=== PATIENT | male | born 1960 | race Caucasian/White ===

== ENCOUNTER 2017-09-17 19:04 | Emergency (ER) | payer BC ==
[2017-09-17] MEDS ORDERED: DUONEB 0.5-3 MG/3 ml Neb IH ONE ×2 (19:10→19:52)
[2017-09-17] MEDS ORDERED: PULMICORT 0.5 MG/2 ML RESPULES IH STA (19:10)
[2017-09-17] MEDS ORDERED: ROCEPHIN 1 Gm-D5w 50 ml Bag** 1 G/50 ML IVPB IV STA (19:11)
[2017-09-17] MEDS ORDERED: solu-MEDROL 125 MG IV ONE (19:11)
[2017-09-17] MEDS ORDERED: Sodium Chloride 0.9% 1000 ML 1,000 ML IV STA (19:11)
--- NOTE | 2017-09-17 19:18 | ERPHSYRPT ---
- History of Present Illness Time Seen by Provider: 09/17/17 19:15 Source: patient, EMS Exam Limitations: no limitations Patient Subjective Stated Complaint: SHPRTNESS OF BREATH, COPNTINUOUS COUGH, Triage Nursing Assessment: PT ALERT AND ORIENTEDX3, CONMTINOUS COUGH, GREEN SPUTUM, DIAPHORETIC, PULSES EQUAL BIALTERAL RADIUS, GAIT IS STEADY, ABLE TO AMBUALTE, SHORTNESS OF BREATH Physician History: 56-year-old male came to the emergency room with worsening shortness of breath and cough for 2 weeks duration. Patient was seen in his primary care physician office and was given Solu-Cortef and Rocephin intramuscular and was started on oral antibiotic, but he shortness of breath got worse that he could not breathe at work and so he came to the emergency room. Timing/Duration: week(s) Possible Cause: occasional episodes Associated Symptoms: productive cough International travel in last 2 weeks: No Allergies/Adverse Reactions: bupropion HCl [From Wellbutrin] Allergy (Mild, Verified 08/14/16 18:25) Home Medications: Albuterol Sulfate [Proair Hfa] 8.5 gm IH DAILY PRN PRN 08/14/16 [History] Esomeprazole Magnesium [Nexium] 40 mg PO DAILY 08/14/16 [History] Lisinopril 5 mg [Zestril 5 MG] 2.5 mg PO DAILY 08/14/16 [History] Simvastatin 5 mg PO UD 08/14/16 [History] Hx Tetanus, Diphtheria Vaccination/Date Given: Yes Hx Influenza Vaccination/Date Given: No Hx Pneumococcal Vaccination/Date Given: No Immunizations Up to Date: Yes - Review of Systems Constitutional: No Fever, No Chills Eyes: No Symptoms Ears, Nose, & Throat: No Symptoms Respiratory: Cough, Dyspnea, Wheezing Cardiac: No Chest Pain, No Edema, No Syncope Abdominal/Gastrointestinal: No Abdominal Pain, No Nausea, No Vomiting, No Diarrhea Genitourinary Symptoms: No Dysuria Musculoskeletal: No Back Pain, No Neck Pain Skin: No Rash Neurological: No Dizziness, No Focal Weakness, No Sensory Changes Psychological: No Symptoms Endocrine: No Symptoms All Other Systems: Reviewed and Negative - Past Medical History Pertinent Past Medical History: Yes Neurological History: No Pertinent History ENT History: No Pertinent History Cardiac History: High Cholesterol, Hypertension Respiratory History: Bronchitis Endocrine Medical History: No Pertinent History Musculoskeletal History: No Pertinent History GI Medical History: No Pertinent History, Other History: No Pertinent History Psycho-Social History: Anxiety, Depression Male Reproductive Disorders: No Pertinent History Other Medical History: liver problems - Past Surgical History Past Surgical History: Yes Neuro Surgical History: No Pertinent History Cardiac: Cardiac Catheterization Respiratory: No Pertinent History Gastrointestinal: No Pertinent History Genitourinary: No Pertinent History Musculoskeletal: No Pertinent History, Orthopedic Surgery Male Surgical History: No Pertinent History Other Surgical History: TENDON IN HAND. CYST REMOVAL - Social History Smoking Status: Former smoker How long have you smoked: 2 YRS. Exposure to second hand smoke: No Drug Use: none Patient Lives Alone: No - Nursing Vital Signs Nursing Vital Signs: Initial Vital Signs Temperature 97.8 F 09/17/17 19:04 Pulse Rate 120 H 09/17/17 19:04 Respiratory Rate 24 09/17/17 19:04 Blood Pressure 146/103 09/17/17 19:04 O2 Sat by Pulse Oximetry 96 09/17/17 19:04 Pain Scale Pain Intensity 5 - Physical Exam General Appearance: no apparent distress, alert Eye Exam: PERRL/EOMI Neck Exam: normal inspection, supple Respiratory Exam: respiratory distress, rhonchi, wheezing Cardiovascular/Chest Exam: normal heart sounds, regular rate/rhythm Abdominal/Gastrointestinal Exam: soft, No tenderness, No distention, No mass Extremity Exam: non-tender, normal range of motion, normal inspection, no calf tenderness, no pedal edema Neurologic Exam: alert, oriented x 3, cooperative, 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, sensation nml, No motor deficits Skin Exam: normal color, warm, No dry SpO2 Interpretation: normal SpO2: 96 Oxygen Delivery: Nasal Cannula - Course Nursing assessment & vital signs reviewed: Yes - Radiology Exams Chest X-ray Interpretation: Reviewed by me Ordered Tests: Active Orders 24 hr Category Date Time Status Oxygen-ED Only NASAL CANNULA 2 lpm Care 09/17/17 19:11 Active CHEST 2 VIEWS (PA AND LAT) Stat Exams 09/17/17 19:12 Taken CBC W DIFF Stat Lab 09/17/17 19:21 Completed CMP Stat Lab 09/17/17 19:21 Completed Manual Differential NC Stat Lab 09/17/17 19:21 Completed Respiratory Nebulizer STAT RT 09/17/17 19:10 Active Medication Summary Generic Name Dose Route Start Last Admin Trade Name Freq PRN Reason Stop Dose Admin Sodium Chloride 1,000 mls @ 999 mls/hr 09/17/17 19:11 09/17/17 19:37 Sodium Chloride 0.9% 1000 Ml IV 09/17/17 20:11 999 mls/hr .Q1H1M STA Administration Discontinued Medications Generic Name Dose Route Start Last Admin Trade Name Afia PRN Reason Stop Dose Admin Albuterol/Ipratropium 3 ml 09/17/17 19:10 Duoneb 0.5-3 Mg/3 Ml Neb IH 09/17/17 19:11 STAT ONE Budesonide 0.5 mg 09/17/17 19:10 Pulmicort 0.5 Mg/2 Ml Respules IH 09/17/17 19:11 STAT STA Budesonide Confirm 09/17/17 19:49 Pulmicort 0.5 Mg/2 Ml Respules Administered 09/17/17 19:50 Dose 0.5 mg IH .STK-MED ONE Ceftriaxone Sodium/Dextrose 1 g in 50 mls @ 100 mls/hr 09/17/17 19:11 19:37 Rocephin 1 Gm-D5w 50 Ml Bag IV 09/17/17 19:40 100 mls/hr STAT STA Administration Sodium Chloride Confirm 09/17/17 19:21 Sodium Chloride 0.9% 1000 Ml Administered 09/17/17 19:22 Dose 1,000 mls @ ud .ROUTE .STK-MED ONE Ceftriaxone Sodium/Dextrose Confirm 09/17/17 19:21 Rocephin 1 Gm-D5w 50 Ml Bag Administered 09/17/17 19:22 Dose 1 g in 50 mls @ ud IV .STK-MED ONE Methylprednisolone Sodium Succinate 80 mg 09/17/17 19:11 09/17/17 19:36 Solu-Medrol 125 Mg IV 09/17/17 19:12 80 mg STAT ONE Administration Methylprednisolone Sodium Succinate Confirm 09/17/17 19:20 Solu-Medrol 125 Mg Administered 09/17/17 19:21 Dose 125 mg .ROUTE .STK-MED ONE Lab/Rad Data: Laboratory Result Diagrams 09/17/17 19:21 09/17/17 19:21 Laboratory Results 10/20/17 10/20/17 Range/Units 19:21 19:21 WBC 10.0 (4.0-10.5) K/mm3 RBC 4.88 (4.1-5.6) M/mm3 Hgb 14.9 (12.5-18.0) gm/dl Hct 43.6 (42-50) % MCV 89.3 (78-100) fl MCH 30.5 (26-32) pg MCHC 34.2 (32-36) g/dl RDW 13.6 (11.5-14.0) % Plt Count 270 (150-450) K/mm3 MPV 9.6 H (6-9.5) fl Sodium 140 (136-145) mEq/L Potassium 3.4 L (3.5-5.1) mEq/L Chloride 104 (98-107) mEq/L Carbon Dioxide 18.7 L (21-32) mEq/L Anion Gap 20.4 H (5-15) MEQ/L BUN 20 (9-20) mg/dL Creatinine 1.20 (0.55-1.30) mg/dl Estimated GFR > 60 ML/MIN Glucose 113 H (70-110) MG/DL Calcium 9.2 (8.5-10.1) mg/dL Total Bilirubin 0.40 (0.2-1.0) mg/dL AST 20 (15-37) U/L ALT 56 (12-78) U/L Alkaline Phosphatase 66 (46-116) U/L Serum Total Protein 7.5 (6.4-8.2) gm/dL Albumin 4.3 (3.4-5.0) g/dL - Progress Progress: improved Air Movement: good Blood Culture(s) Obtained: No Antibiotics given: Yes Counseled pt/family regarding: lab results, diagnosis, need for follow-up, rad results - Departure Time of Disposition: 19:53 Departure Disposition: Home Clinical Impression: Acute exacerbation of chronic bronchitis Condition: Stable Critical Care Time: Yes Critical Care Time(excluding separately billable procedures): 30-74 minutes Referrals: PRICILA BAI [Primary Care Provider] - Instructions: Chronic Bronchitis Additional Instructions: Please follow the instructions given to you. Please take your medication as prescribed if given. If symptoms recur or get worse, come back to the emergency room if you cannot reach your primary care physician, or call your primary care physician for an appointment. Again if your symptoms get worse, come back to the emergency room. Thanks for visiting emergency room, and let us take care of you. Forms: Work/School Release Form Prescriptions: Levofloxacin [Levaquin 500 MG Tablet] 500 mg PO QAM #5 tablet Benzonatate [Tessalon Perle] 100 mg PO BID #20 capsule
[2017-09-17] MEDS ORDERED: solu-MEDROL 125 MG ONE (19:20)
[2017-09-17] MEDS ORDERED: Sodium Chloride 0.9% 1000 ML 1,000 ML ONE (19:21)
[2017-09-17] MEDS ORDERED: ROCEPHIN 1 Gm-D5w 50 ml Bag** 1 G/50 ML IVPB IV ONE (19:21)
[2017-09-17 19:26] LABS: Mean Cell Volume 89.3 fl (78-100); Mean Corpuscular Hemoglobin 30.5 pg (26-32); Mean Platelet Volume 9.6 fl (6-9.5); Platelet Count 270 K/mm3 (150-450); Red Blood Count 4.88 M/mm3 (4.1-5.6); Red Cell Distribution Width 13.6 % (11.5-14.0)
[2017-09-17 19:45] LABS: ALBUMIN 4.3 g/dL (3.4-5.0); ALKALINE PHOSPHATASE 66 U/L (46-116); ANION GAP 20.4 MEQ/L (5-15); BLOOD UREA NITROGEN 20 mg/dL (9-20); CHLORIDE 104 mEq/L (98-107); Carbon Dioxide 18.7 mEq/L (21-32); Glucose 113 MG/DL (70-110); Potassium 3.4 mEq/L (3.5-5.1); SGOT/AST 20 U/L (15-37); SGPT/ALT 56 U/L (12-78); SODIUM 140 mEq/L (136-145); Total Protein 7.5 gm/dL (6.4-8.2)
[2017-09-17] MEDS ORDERED: PULMICORT 0.5 MG/2 ML RESPULES IH ONE (19:49)
[2017-09-17 19:59] VITALS: PULSE 102; O2SAT 97
[2017-09-17 20:03] VITALS: BP 146/86
[2017-09-17 20:14] LABS: ATYPICAL LYMPHS 2 %; BAND 1 % (0.0-2.0); Platelet Estimate NORMAL (NORMAL); Total Cells Counted 100
--- NOTE | 2017-09-18 08:05 | XRAY ---
Indication: Cough and congestion. Comparison: September 11, 2012. PA/lateral chest again demonstrates normal heart, lungs, and bony thorax with a few incidental calcified granulomas.
== END 2017-09-17 20:20 | disposition home or self-care (01) ==
LOC: ED 19:04
DX: J42 Unspecified chronic bronchitis (principal); R06.02 Shortness of breath; R05 Cough; Z79.899 Other long term (current) drug therapy; E78.00 Pure hypercholesterolemia, unspecified; I10 Essential (primary) hypertension
CPT/HCPCS: 36415; 71020; 80053; 85025; 94640; 96360; 96365; 96374; 99284; J0696; J2930; A9270-GY

== ENCOUNTER 2021-05-02 11:22 | Emergency (ER) | payer OTHER ==
[2021-05-02] MEDS ORDERED: Sodium Chloride 0.9% 1000 ML 1,000 ML IV STA (12:05)
[2021-05-02] MEDS ORDERED: Sodium Chloride 0.9% 1000 ML 1,000 ML ONE (12:15)
--- NOTE | 2021-05-02 12:24 | XRAY ---
Indication: Dizziness. Comparison: September 17, 2017. Portable chest inflated and clear again with a few incidental calcified granulomas. Heart and mediastinal structures within normal limits. Bony thorax demonstrates new left 8/9 rib fractures of uncertain chronicity.
[2021-05-02 12:32] LABS: Absolute Neutrophil Ct (ANC) 3.72 (1.4-6.9); BASOPHIL % 0.2 % (0.0-0.4); Basophil (Absolute #) 0.01 (0-0.4); Eosinophil % 0.5 % (0.00-5.0); Eosinophil (Absolute #) 0.03 (0-0.5); Hematocrit 48.3 % (42-50); Hemoglobin 16.1 gm/dl (12.5-18.0); Lymphocyte (Absolute #) 1.58 (1.0-4.6); Lymphocytes % 26.2 % (24.0-44.0); Mean Cell Volume 93.8 fl (78-100); Mean Corpuscular Hemoglobin 31.3 pg (26-32); Mean Corpuscular Hgb Concent. 33.3 g/dl (32-36); Mean Platelet Volume 10.7 fl (7.5-11.0); Monocyte (Absolute #) 0.69 (0.0-1.3); Monocytes % 11.4 % (0.0-12.0); Neutrophil % 61.7 % (36.0-66.0); Platelet Count 202 K/mm3 (150-450); Red Blood Count 5.15 M/mm3 (4.1-5.6)
[2021-05-02 12:46] LABS: ALBUMIN 4.6 g/dL (3.5-5.0); ALKALINE PHOSPHATASE 53 U/L (38-126); ANION GAP 15.4 MEQ/L (5-15); BLOOD UREA NITROGEN 13 mg/dL (9-20); CHLORIDE 104 mmol/L (98-107); Calcium 9.8 mg/dL (8.4-10.2); Carbon Dioxide 21 mmol/L (22-30); Creatinine 1 0.89 mg/dL (0.66-1.25); EST GLOMERULAR FILTRATION RATE > 60.0 ML/MIN; ETHYL ALCOHOL < 10 mg/dL (0-10); Glucose 124 mg/dL (74-106); Potassium 3.8 mmol/L (3.5-5.1); SGOT/AST 133 U/L (17-59); SGPT/ALT 244 U/L (0-50); SODIUM 136 mmol/L (137-145); Total Protein 7.1 g/dL (6.3-8.2)
--- NOTE | 2021-05-02 13:00 | XRAY ---
Indication: Headache, dizziness, nausea. Multiple contiguous images obtained through the head without contrast. Comparison: August 14, 2016. Normal appearing brain parenchyma, ventricles, and bony calvarium. Visualized paranasal sinuses and mastoid air cells are clear. Impression: Continued normal CT head without contrast exam.
--- NOTE | 2021-05-02 13:02 | ERPHSYRPT ---
- History of Present Illness Time Seen by Provider: 05/02/21 12:04 Source: patient Exam Limitations: no limitations Patient Subjective Stated Complaint: PT states "About 5 days ago I was really dizzy and went to the clinic 4 days ago and they cleaned my ears out really good and said I had a possible blood infectionand gave me a z pack and I am still dizzy." Triage Nursing Assessment: Pt presented alert and oriented X 4, skin pwd Pt ambulates with an upright steady gait, able to speak in clear full sentences pt in no apparent respiratory distress. Physician History: 60 years old male with a history of hypertension, hyperlipidemia, alcohol abuse, COPD presented in the ER with 5-day history of feeling dizzy lightheaded. Patient reports he went to urgent care they cleaned his ears, had blood work done at [facility] and is given Z-Lisandro for supposedly bladder infection. He still feel dizzy and lightheaded with activity and even resting, not feeling himself. Patient described this as "as I am drunk and cannot think straight". Patient reports he stopped drinking alcohol 5 days ago. Denies any room spin julio sensation but does get a little off balance at times but did not report any fall. He denies any focal numbness tingling or weakness. No difficulty speech or visual symptoms reported. Timing/Duration: day(s) (5), constant, sudden, worse Severity: moderate Character of Deficits: other Baseline/Normal Cognition: alert oriented x 3 Current Cognition: alert oriented x 3 Baseline Gait: walks w/o assistance Associated Symptoms: fatigue, No confusion, No nausea, No vomiting, No weakness, No insomnia, No muscle spasms, No numbness/tingling in legs/feet, No paresthesia, No ringing in ears, No seizures, No slurred speech, No vision changes, No chest pain, No headache Allergies/Adverse Reactions: bupropion HCl [From Wellbutrin] Allergy (Mild, Verified 08/14/16 18:25) Home Medications: Albuterol Sulfate [Proair Hfa] 8.5 gm IH DAILY PRN PRN 08/14/16 [History] Esomeprazole Magnesium [Nexium] 40 mg PO DAILY 08/14/16 [History] Simvastatin 5 mg PO UD 08/14/16 [History] Budesonide/Formoterol Fumarate [Budesonide-Formoterol 160-4.5] 1 puff IH DAILY 05/02/21 [History] Losartan Potassium [Cozaar] 50 mg PO DAILY 05/02/21 [History] Prednisone 20 mg [Deltasone 20 mg] 20 mg PO DAILY 05/02/21 [History] Hx Tetanus, Diphtheria Vaccination/Date Given: Yes Hx Influenza Vaccination/Date Given: Yes Hx Pneumococcal Vaccination/Date Given: No Immunizations Up to Date: Yes Travel Risk - International Travel Have you traveled outside of the country in past 3 weeks: No - Coronavirus Screening Are you exhibiting any of the following symptoms?: No Close contact with a COVID-19 positive Pt in past 14-21 Days: No - Vaccine Status Have you recieved a Covid-19 vaccination: No - Review of Systems Constitutional: Fatigue Eyes: No Symptoms Ears, Nose, & Throat: No Symptoms Respiratory: No Symptoms Cardiac: No Symptoms Abdominal/Gastrointestinal: No Symptoms Genitourinary Symptoms: No Symptoms Musculoskeletal: No Symptoms Skin: No Symptoms Neurological: Dizziness Psychological: Anxiety Endocrine: No Symptoms Hematologic/Lymphatic: No Symptoms Immunological/Allergic: No Symptoms - Past Medical History Pertinent Past Medical History: Yes Neurological History: No Pertinent History ENT History: No Pertinent History Cardiac History: High Cholesterol, Hypertension Respiratory History: Bronchitis, COPD Endocrine Medical History: No Pertinent History Musculoskeletal History: No Pertinent History GI Medical History: No Pertinent History, Other History: No Pertinent History Psycho-Social History: Anxiety, Depression Male Reproductive Disorders: No Pertinent History Other Medical History: liver problems - Past Surgical History Past Surgical History: Yes Neuro Surgical History: No Pertinent History Cardiac: Cardiac Catheterization Respiratory: No Pertinent History Gastrointestinal: No Pertinent History Genitourinary: No Pertinent History Musculoskeletal: No Pertinent History, Orthopedic Surgery Male Surgical History: No Pertinent History Other Surgical History: TENDON IN HAND. CYST REMOVAL - Social History Smoking Status: Former smoker How long have you smoked: 2 YRS. Exposure to second hand smoke: Yes Drug Use: none Patient Lives Alone: No - Nursing Vital Signs Nursing Vital Signs: Initial Vital Signs Temperature 98.5 F 05/02/21 11:27 Pulse Rate 105 H 05/02/21 11:27 Respiratory Rate 20 05/02/21 11:27 Blood Pressure 176/112 05/02/21 11:27 O2 Sat by Pulse Oximetry 96 05/02/21 11:27 Pain Scale Pain Intensity 0 - [place] Coma Scale Best Eye Response ([place]): (4) open spontaneously Best Verbal Response ([place]): (5) oriented Best Motor Response ([place]): (6) obeys commands [place] Total: 15 - Physical Exam General Appearance: no apparent distress, alert, anxiety Eye Exam: bilateral eye: normal inspection, PERRL, EOMI Ears, Nose, Throat Exam: normal ENT inspection, TMs normal, pharynx normal, moist mucous membranes Neck Exam: normal inspection, non-tender, supple, full range of motion Respiratory: normal breath sounds, lungs clear Cardiovascular: regular rate/rhythm, normal heart sounds Gastrointestinal: soft, normal bowel sounds, No tenderness Back Exam: normal inspection, normal range of motion Extremity Exam: normal inspection, normal range of motion, pelvis stable Mental Status: alert, oriented x 3, cooperative [place] hand Exam: normal hearing, normal speech, PERRL, abnormal eye position Coordination/Gait: normal finger to nose, normal gait, normal cerebellar function, No ABN nose to finger (R), No ABN nose to finger (L) Motor/Sensory: no motor deficit, no sensory deficit, no pronator drift, negative Babinski's sign DTR: bicep (R): 2+, bicep (L): 2+, knee (R): 2+, knee (L): 2+ Skin Exam: normal color SpO2 Interpretation: normal SpO2: 98 O2 Delivery: Room Air - Course EKG Interpreted by Me: RATE (101), Sinus Tach, NORMAL AXIS, NORMAL INTERVALS, NORMAL QRS Ordered Tests: Active Orders 24 hr Category Date Time Status Color Repairer STAT Care 05/02/21 12:06 Completed EKG-ER Only STAT Care 05/02/21 12:05 Completed IV Insertion STAT Care 05/02/21 12:05 Completed Orthostatic Vital Signs STAT Care 05/02/21 12:05 Completed Consult Tele-Health [Tele-Health Consult] ROUTINE Cons 05/02/21 14:15 Completed CHEST 1 VIEW (PORTABLE) Stat Exams 05/02/21 12:05 Completed HEAD WITHOUT CONTRAST [CT] Stat Exams 05/02/21 12:05 Completed MRA BRAIN WITHOUT CONTRAST [MRI] Stat Exams 05/02/21 14:58 Completed MRA NECK WITH CONTRAST [MRI] Stat Exams 05/02/21 14:58 Completed MRI BRAIN W/O CONTRAST [MRI] Stat Exams 05/02/21 14:58 Completed CBC W DIFF Stat Lab 05/02/21 12:29 Completed CMP Stat Lab 05/02/21 12:29 Completed ETHYL ALCOHOL Stat Lab 05/02/21 12:29 Completed Lactic Acid Stat Lab 05/02/21 12:14 Completed MAGNESIUM Stat Lab 05/02/21 12:29 Completed TROPONIN Q3H Lab 05/02/21 12:29 Completed TROPONIN Q3H Lab 05/02/21 15:25 Completed UA W/RFX UR CULTURE Stat Lab 05/02/21 12:55 Completed Urine Triage Profile Stat Lab 05/02/21 12:55 Completed Medication Summary Discontinued Medications Generic Name Dose Route Start Last Admin Trade Name Freq PRN Reason Stop Dose Admin Aspirin 324 mg 05/02/21 14:58 05/02/21 15:06 Baby Aspirin 81 Mg Chew PO 05/02/21 14:59 324 mg STAT ONE Administration Aspirin Confirm 05/02/21 15:02 Baby Aspirin 81 Mg Chew Administered 05/02/21 15:03 Dose 324 mg .ROUTE .STK-MED ONE Sodium Chloride 1,000 mls @ 999 mls/hr 05/02/21 12:05 05/02/21 13:24 Sodium Chloride 0.9% 1000 Ml IV 05/02/21 13:05 Infused .Q1H1M STA Infusion Sodium Chloride Confirm 05/02/21 12:15 Sodium Chloride 0.9% 1000 Ml Administered 05/02/21 12:16 Dose 1,000 mls @ ud .ROUTE .STK-MED ONE Lorazepam 1 mg 05/02/21 15:22 05/02/21 15:23 Ativan 2 Mg/1 Ml Vial IV 05/02/21 15:23 1 mg STAT ONE Administration Lorazepam Confirm 05/02/21 15:23 Ativan 2 Mg/1 Ml Vial Administered 05/02/21 15:24 Dose 2 mg .ROUTE .STK-MED ONE Meclizine HCl 25 mg 05/02/21 14:58 05/02/21 15:04 Antivert 25 Mg PO 05/02/21 14:59 25 mg STAT ONE Administration Meclizine HCl Confirm 05/02/21 15:02 Antivert 25 Mg Administered 05/02/21 15:03 Dose 25 mg .ROUTE .STK-MED ONE Thiamine HCl 500 mg 05/02/21 17:08 05/02/21 17:28 Vitamin B-1 100 Mg PO 05/02/21 17:09 500 mg STAT ONE Administration Lab/Rad Data: Laboratory Result Diagrams 05/02/21 12:29 05/02/21 12:29 Laboratory Results 05/02/21 05/02/21 05/02/21 Range/Units 15:25 12:55 12:55 WBC (4.0-10.5) K/mm3 RBC (4.1-5.6) M/mm3 Hgb (12.5-18.0) gm/dl Hct (42-50) % MCV (78-100) fl MCH (26-32) pg MCHC (32-36) g/dl RDW (11.5-14.0) % Plt Count (150-450) K/mm3 MPV (7.5-11.0) fl Gran % (36.0-66.0) % Eos # (Auto) (0-0.5) Absolute Lymphs (auto) (1.0-4.6) Absolute Monos (auto) (0.0-1.3) Lymphocytes % (24.0-44.0) % Monocytes % (0.0-12.0) % Eosinophils % (0.00-5.0) % Basophils % (0.0-0.4) % Absolute Granulocytes (1.4-6.9) Basophils # (0-0.4) Sodium (137-145) mmol/L Potassium (3.5-5.1) mmol/L Chloride (98-107) mmol/L Carbon Dioxide (22-30) mmol/L Anion Gap (5-15) MEQ/L BUN (9-20) mg/dL Creatinine (0.66-1.25) mg/dL Estimated GFR ML/MIN Glucose (74-106) mg/dL Lactic Acid (0.4-2.0) Calcium (8.4-10.2) mg/dL Magnesium (1.6-2.3) mg/dL Total Bilirubin (0.2-1.3) mg/dL AST (17-59) U/L ALT (0-50) U/L Alkaline Phosphatase (38-126) U/L Troponin I < 0.012 (0.000-0.034) ng/mL Serum Total Protein (6.3-8.2) g/dL Albumin (3.5-5.0) g/dL Urine Color YELLOW (YELLOW) Urine Appearance CLEAR (CLEAR) Urine pH 6.0 (5-6) Ur Specific [place] 1.018 (1.005-1.025) Urine Protein NEGATIVE (Negative) Urine Ketones TRACE (NEGATIVE) Urine Blood NEGATIVE (0-5) Sin/ul Urine Nitrite NEGATIVE (NEGATIVE) Urine Bilirubin NEGATIVE (NEGATIVE) Urine Urobilinogen 2 (0-1) mg/dL Ur Leukocyte Esterase NEGATIVE (NEGATIVE) Urine WBC (Auto) NONE (0-5) /HPF Urine Mucus (Auto) SLIGHT (NEGATIVE) /HPF Urine Culture Reflexed NO (NO) Urine Glucose NEGATIVE (NEGATIVE) mg/dL Urine Opiates Level NEGATIVE (NEGATIVE) Ur Methadone NEGATIVE (NEGATIVE) Urine Barbiturates NEGATIVE (NEGATIVE) Ur Phencyclidine (PCP) NEGATIVE (NEGATIVE) Urine Amphetamine NEGATIVE (NEGATIVE) U Benzodiazepine Level NEGATIVE (NEGATIVE) Urine Cocaine NEGATIVE (NEGATIVE) Urine Marijuana (THC) NEGATIVE (NEGATIVE) Ethyl Alcohol (0-10) mg/dL 05/02/21 05/02/21 05/02/21 Range/Units 12:29 12:29 12:29 WBC 6.0 (4.0-10.5) K/mm3 RBC 5.15 (4.1-5.6) M/mm3 Hgb 16.1 (12.5-18.0) gm/dl Hct 48.3 (42-50) % MCV 93.8 (78-100) fl MCH 31.3 (26-32) pg MCHC 33.3 (32-36) g/dl RDW 13.0 (11.5-14.0) % Plt Count 202 (150-450) K/mm3 MPV 10.7 (7.5-11.0) fl Gran % 61.7 (36.0-66.0) % Eos # (Auto) 0.03 (0-0.5) Absolute Lymphs (auto) 1.58 (1.0-4.6) Absolute Monos (auto) 0.69 (0.0-1.3) Lymphocytes % 26.2 (24.0-44.0) % Monocytes % 11.4 (0.0-12.0) % Eosinophils % 0.5 (0.00-5.0) % Basophils % 0.2 (0.0-0.4) % Absolute Granulocytes 3.72 (1.4-6.9) Basophils # 0.01 (0-0.4) Sodium 136 L (137-145) mmol/L Potassium 3.8 (3.5-5.1) mmol/L Chloride 104 (98-107) mmol/L Carbon Dioxide 21 L (22-30) mmol/L Anion Gap 15.4 H (5-15) MEQ/L BUN 13 (9-20) mg/dL Creatinine 0.89 (0.66-1.25) mg/dL Estimated GFR > 60.0 ML/MIN Glucose 124 H (74-106) mg/dL Lactic Acid (0.4-2.0) Calcium 9.8 (8.4-10.2) mg/dL Magnesium 2.0 (1.6-2.3) mg/dL Total Bilirubin 0.80 (0.2-1.3) mg/dL AST 133 H (17-59) U/L ALT 244 H (0-50) U/L Alkaline Phosphatase 53 (38-126) U/L Troponin I < 0.012 (0.000-0.034) ng/mL Serum Total Protein 7.1 (6.3-8.2) g/dL Albumin 4.6 (3.5-5.0) g/dL Urine Color (YELLOW) Urine Appearance (CLEAR) Urine pH (5-6) Ur Specific [place] (1.005-1.025) Urine Protein (Negative) Urine Ketones (NEGATIVE) Urine Blood (0-5) Sin/ul Urine Nitrite (NEGATIVE) Urine Bilirubin (NEGATIVE) Urine Urobilinogen (0-1) mg/dL Ur Leukocyte Esterase (NEGATIVE) Urine WBC (Auto) (0-5) /HPF Urine Mucus (Auto) (NEGATIVE) /HPF Urine Culture Reflexed (NO) Urine Glucose (NEGATIVE) mg/dL Urine Opiates Level (NEGATIVE) Ur Methadone (NEGATIVE) Urine Barbiturates (NEGATIVE) Ur Phencyclidine (PCP) (NEGATIVE) Urine Amphetamine (NEGATIVE) U Benzodiazepine Level (NEGATIVE) Urine Cocaine (NEGATIVE) Urine Marijuana (THC) (NEGATIVE) Ethyl Alcohol < 10 (0-10) mg/dL 05/02/21 Range/Units 12:14 WBC (4.0-10.5) K/mm3 RBC (4.1-5.6) M/mm3 Hgb (12.5-18.0) gm/dl Hct (42-50) % MCV (78-100) fl MCH (26-32) pg MCHC (32-36) g/dl RDW (11.5-14.0) % Plt Count (150-450) K/mm3 MPV (7.5-11.0) fl Gran % (36.0-66.0) % Eos # (Auto) (0-0.5) Absolute Lymphs (auto) (1.0-4.6) Absolute Monos (auto) (0.0-1.3) Lymphocytes % (24.0-44.0) % Monocytes % (0.0-12.0) % Eosinophils % (0.00-5.0) % Basophils % (0.0-0.4) % Absolute Granulocytes (1.4-6.9) Basophils # (0-0.4) Sodium (137-145) mmol/L Potassium (3.5-5.1) mmol/L Chloride (98-107) mmol/L Carbon Dioxide (22-30) mmol/L Anion Gap (5-15) MEQ/L BUN (9-20) mg/dL Creatinine (0.66-1.25) mg/dL Estimated GFR ML/MIN Glucose (74-106) mg/dL Lactic Acid 1.2 (0.4-2.0) Calcium (8.4-10.2) mg/dL Magnesium (1.6-2.3) mg/dL Total Bilirubin (0.2-1.3) mg/dL AST (17-59) U/L ALT (0-50) U/L Alkaline Phosphatase (38-126) U/L Troponin I (0.000-0.034) ng/mL Serum Total Protein (6.3-8.2) g/dL Albumin (3.5-5.0) g/dL Urine Color (YELLOW) Urine Appearance (CLEAR) Urine pH (5-6) Ur Specific [place] (1.005-1.025) Urine Protein (Negative) Urine Ketones (NEGATIVE) Urine Blood (0-5) Sin/ul Urine Nitrite (NEGATIVE) Urine Bilirubin (NEGATIVE) Urine Urobilinogen (0-1) mg/dL Ur Leukocyte Esterase (NEGATIVE) Urine WBC (Auto) (0-5) /HPF Urine Mucus (Auto) (NEGATIVE) /HPF Urine Culture Reflexed (NO) Urine Glucose (NEGATIVE) mg/dL Urine Opiates Level (NEGATIVE) Ur Methadone (NEGATIVE) Urine Barbiturates (NEGATIVE) Ur Phencyclidine (PCP) (NEGATIVE) Urine Amphetamine (NEGATIVE) U Benzodiazepine Level (NEGATIVE) Urine Cocaine (NEGATIVE) Urine Marijuana (THC) (NEGATIVE) Ethyl Alcohol (0-10) mg/dL - Progress Progress: improved, re-examined Progress Note: 05/02/21 17:06 60 years old is evaluated for lightheadedness/dizziness going on for the last 5 days with nonfocal neuro exam. CT head is obtained which is negative. Grossly unremarkable work-up, obtain [facility] neurology consult who thinks more of a BPV, alcohol withdrawal versus central vertigo and recommended MRI/MRAs which are obtained and negative for any acute stroke related findings. Patient is given meclizine and feeling better. He would be started on daily aspirin. Part of his symptoms could be from alcohol withdrawal as well. We will continue with meclizine to go home as well as needed. Discussed signs symptoms of worsening needing return to ER which he seems understanding. Stable for discharge. Discussed with .: Other Counseled pt/family regarding: lab results, diagnosis, need for follow-up, rad results - Departure Departure Disposition: Home Clinical Impression: Dizziness Condition: Stable Critical Care Time: Yes Critical Care Time(excluding separately billable procedures): Critical 30-74 mins Referrals: EAN THAYER [Primary Care Provider] - Follow Up with PCP/3 days LONDON NUNEZ [NON-STAFF PHY W/O PRIVILEGES] - (In 3 days for reevaluation) Instructions: Vertigo (a Type of Dizziness) (DC), Dizziness, Nonvertigo, (DC) Additional Instructions: Take meclizine as needed for dizziness/lightheadedness. Do not drink alcohol. Continue with thiamine. Take daily baby aspirin. Follow-up with primary care and neurology for reevaluation. Return to ER for worsening symptoms of dizziness lightheadedness, focal numbness tingling weakness or gait disturbance. Prescriptions: Meclizine HCl 25 mg [Antivert 25 mg] 25 mg PO TID PRN 7 Days #15 tablet PRN Reason: Dizziness Aspirin EC 81 mg [Ecotrin 81 mg] 81 mg PO DAILY #30 tablet Thiamine HCl 100 mg [Vitamin B-1 100 mg] 100 mg PO DAILY #60 tablet
[2021-05-02 14:33] LABS: Appearance CLEAR (CLEAR); Bilirubin NEGATIVE (NEGATIVE); Blood NEGATIVE Ery/ul (0-5); Glucose NEGATIVE (NEGATIVE); Ketones TRACE (NEGATIVE); Leukocyte Esterase NEGATIVE (NEGATIVE); Mucus SLIGHT /HPF (NEGATIVE); Nitrite NEGATIVE (NEGATIVE); Protein,Urine Dip NEGATIVE (Negative); Specific Gravity 1.018 (1.005-1.025); Urobilinogen 2 mg/dL (0-1)
[2021-05-02 14:49] LABS: Amphetamine,Urine NEGATIVE (NEGATIVE); Barbiturate,Urine NEGATIVE (NEGATIVE); Benzodiazepine,Urine NEGATIVE (NEGATIVE); Cocaine,Urine NEGATIVE (NEGATIVE); Methadone,Urine NEGATIVE (NEGATIVE); Opiate,Urine NEGATIVE (NEGATIVE); PCP,Urine NEGATIVE (NEGATIVE); THC,Urine NEGATIVE (NEGATIVE)
[2021-05-02] MEDS ORDERED: ANTIVERT 25 MG PO ONE (14:58)
[2021-05-02] MEDS ORDERED: BABY ASPIRIN 81 MG CHEW PO ONE (14:58)
[2021-05-02] MEDS ORDERED: ANTIVERT 25 MG ONE (15:02)
[2021-05-02] MEDS ORDERED: BABY ASPIRIN 81 MG CHEW ONE (15:02)
[2021-05-02] MEDS ORDERED: Ativan 2 MG/1 ML VIAL IV ONE (15:22)
[2021-05-02] MEDS ORDERED: Ativan 2 MG/1 ML VIAL ONE (15:23)
--- NOTE | 2021-05-02 16:02 | XRAY ---
Indication: Dizziness 5 days. Sagittal, coronal, and axial MRI brain performed without contrast using T1, T2, FLAIR, diffusion, and ADC sequences. Comparison: None Ventriculosulcal pattern appears symmetric. A few tiny periventricular T2 signal intensities bilaterally favor degenerative micro-ischemia. Diffusion images are negative for restricted signal. No acute intracranial hemorrhage, abnormal extra-axial fluid collection, or mass effect. 7/8 cranial nerve complex bilaterally symmetric. Normal flow void signal within the major intercerebral circulation. Normal appearing craniocervical junction and sella turcica. Paranasal sinuses are clear. Impression: 1. Minimal degenerative micro-ischemia signal within normal limits for patient's age. 2. Remaining MRI brain without contrast exam is negative.
[2021-05-02 16:09] VITALS: PULSE 80; O2SAT 98
--- NOTE | 2021-05-02 16:32 | XRAY ---
Indication: Dizziness 5 days. Multi-slab 3-D [id number] MRA [place] performed. Comparison: None Distal internal carotid arteries are bilaterally symmetric without critical stenosis, obstruction, or AV malformation. Normal carotid terminus with normal branching A1 and M1 segments bilaterally. More distal anterior cerebral and middle cerebral arteries are normal in MRA appearance bilaterally. Basilar artery is normal in course and caliber. Normal branching posterior cerebral, superior cerebellar, and anterior inferior cerebellar arteries bilaterally. Impression: Negative MRA [place].
[2021-05-02] MEDS ORDERED: VITAMIN B-1 100 MG PO ONE (17:08)
[2021-05-02 17:26] VITALS: BP 172/98
--- NOTE | 2021-05-02 22:04 | XRAY ---
Indication: Dizziness 5 days. Conventional contrast enhanced MRA neck performed using 15 cc [place] contrast. Comparison: None Study is slightly degraded by motion artifact. Visualized common carotid, carotid bulb, internal carotid, and external carotid arteries are grossly normal in MRA appearance. Vertebral arteries are markedly degraded by motion artifact. No focal stenosis or junction. Impression: Motion artifact. Grossly negative MRA neck with contrast exam.
== END 2021-05-02 17:48 | disposition home or self-care (01) ==
LOC: ED 11:22
DX: R42 Dizziness and giddiness (principal); I10 Essential (primary) hypertension; E78.5 Hyperlipidemia, unspecified; F19.10 Other psychoactive substance abuse, uncomplicated; J44.9 Chronic obstructive pulmonary disease, unspecified
CPT/HCPCS: 36000; 36415; 70450; 70544; 70548; 70551; 71045; 80053; 80307; 81001; 83605; 83735; 84484; 85025; 93005; 93041; 96360; 96374; 99285; 99291; G0480; 96375; J2060; A9270-GY